=== PATIENT | female | born 1950 | race Caucasian/White ===

== ENCOUNTER 2017-09-12 07:13 | Day surgery (SDC) | payer BC ==
[~2017-09-12 07:13] MED LIST: Lactated Ringers 1,000 ML IV SCH; Lidocaine 1%/Sod Bicarbonate in NS 8.4% 1 ML Syringe IDERM PRN; Sodium Chloride 0.9% 10 ML Syringe FLUSH PRN
[2017-09-12] MEDS ORDERED: fentaNYL 100 MCG/2 ML SDV ONE (07:22)
[2017-09-12] MEDS ORDERED: Propofol 200 MG/20 ML SDV ONE (07:22)
[2017-09-12] MEDS ORDERED: Lidocaine 1% 4 ML ONE (07:23)
--- NOTE | 2017-09-12 07:56 | PCM.PREANE ---
Preanesthetic Assessment - Procedure Proposed Procedure: Diagnostic EGD - Anesthesia/Transfusion/Family Hx Anesthesia History: Prior Anesthesia Without Reaction Family History of Anesthesia Reaction: No Transfusion History: No Prior Transfusion(s) - Review of Systems General: No Symptoms Pulmonary: Other (NAHID does not use CPAP) Cardiovascular: Chest Pain (Last occasion about 2 months ago- took antacids and went away), Other (HTN) Gastrointestinal: Other (GERD, dysphagia ) Neurological: No Symptoms Other: Reports: Anxiety - Physical Assessment NPO Status Date: 09/11/17 NPO Status Time: 22:30 Pulse: 69 O2 Sat by Pulse Oximetry: 93 Respiratory Rate: 16 Blood Pressure: 119/67 Temperature: 36.9 C Height: 1.6 m Weight: 76 kg ASA Class: 2 Mental Status: Alert & Oriented x3 Airway Class: Mallampati = 1 Dentition: Reports: Broken Tooth/Teeth (top right front tooth fake) Thyro-Mental Finger Breadths: 3 Mouth Opening Finger Breadths: 3 ROM/Head Extension: Full Lungs: Clear to Auscultation, Normal Respiratory Effort Cardiovascular: Regular Rate, Regular Rhythm - Allergies Allergies/Adverse Reactions: Allergies Allergy/AdvReac Type Severity Reaction Status Date / Time No Known Allergies Allergy Verified 01/23/15 06:50 - Blood Blood Available: No Product(s) Available: None - Anesthesia Plan Pre-Op Medication Ordered: None - Acknowledgements Anesthesia Type Planned: MAC Pt an Appropriate Candidate for the Planned Anesthesia: Yes Alternatives and Risks of Anesthesia Discussed w Pt/Guardian: Yes Pt/Guardian Understands and Agrees with Anesthesia Plan: Yes PreAnesthesia Questionnaire - CURRENT (IN HOUSE) MEDS Current Meds: Current Medications Lactated Ringer's (Ringers, Lactated) 1,000 mls @ 125 mls/hr IV ASDIRECTED TRENT Stop: 09/12/17 23:00 Lidocaine/Sodium Bicarbonate (Buffered Lidocaine 1% In Ns 8.4%) 0.25 ml IDERM ONETIME PRN PRN Reason: Prior to IV Start Stop: 09/12/17 18:00 Sodium Chloride (Saline Flush) 10 ml FLUSH ASDIRECTED PRN PRN Reason: Keep Vein Open Stop: 09/12/17 18:00 Discontinued Medications Fentanyl (Sublimaze) Confirm Administered Dose 100 mcg .ROUTE .STK-MED ONE Stop: 09/12/17 07:23 Lidocaine HCl (Xylocaine-Mpf 1%) Confirm Administered Dose 4 mls @ as directed .ROUTE .STK-MED ONE Stop: 09/12/17 07:24 Propofol (Diprivan 20 Ml) Confirm Administered Dose 200 mg .ROUTE .STK-MED ONE Stop: 09/12/17 07:23
--- NOTE | 2017-09-12 08:20 | PCM.OPNOTE ---
- General Post-Op/Procedure Note Date of Surgery/Procedure: 09/12/17 Operative Procedure(s): Esophagogastroduodenoscopy with proximal esophageal GE junction as well as antral random biopsies. Gastric polypectomy 1 Findings: Multiple diminutive gastric polyps mostly in the body of the stomach and all less than 5 mm in size but otherwise normal examination with no strictures, stenoses or mass lesion seen within the esophagus. Pre Op Diagnosis: Sinusitis, dysphagia, and GERD symptoms Post-Op Diagnosis: Multiple gastric polyps Anesthesia Technique: MAC, Moderate Sedation Primary Surgeon: Carter Christianson Pathology: Gastric polyp with proximal esophageal biopsy GE junction biopsy and random antral biopsy EBL in mLs: 0 Complications: None Condition: Good Free Text/Narrative:: After adequate IV sedation and analgesia was obtained with monitoring the patient was placed on her left side. Through a bite-block a lubricated upper endoscope was inserted into the esophagus and advanced under direct vision into the body of the stomach where additional air was given. There was some saliva present in the stomach. The scope was then passed through the pylorus into the mid part of the duodenal loop. The second and first parts were endoscopically normal with no inflammatory changes or mass lesion seen. The antrum was unremarkable as well. In the retroflexed view there was no hiatal hernia. The fundic and cardiac regions were normal. There were several small glandular polyps within the body of the stomach and I performed a forceps polypectomy of one of these for histologic evaluation. I took random biopsies of the antrum and the GE junction which was grossly unremarkable. There were no strictures or rings or webs in this area. The scope was withdrawn to the body of the esophagus which was grossly normal. I took a random biopsy in the proximal third given her history of dysphagia. On extubation the vocal cords were briefly visualized and grossly normal. Air was removed as I finished the procedure which she tolerated well. [employer] L[employer] Monitor photographs were taken for the patient and for the medical record.
--- NOTE | 2017-09-12 08:28 | PCM48HPAN ---
Post Anesthesia Note - EVALUATION WITHIN 48HRS OF ANESTHETIC Vital Signs in Normal Range: Yes Patient Participated in Evaluation: Yes Respiratory Function Stable: Yes Airway Patent: Yes Cardiovascular Function Stable: Yes Hydration Status Stable: Yes Pain Control Satisfactory: Yes Nausea and Vomiting Control Satisfactory: Yes Mental Status Recovered: Yes
[2017-09-12 08:41] VITALS: BP 120/74
== END 2017-09-12 08:45 | disposition home or self-care (01) ==
LOC: JD.SDS 07:13
PROVIDERS: ATTEND Surgery
DX: R13.10 Dysphagia, unspecified (principal); K31.7 Polyp of stomach and duodenum; K21.9 Gastro-esophageal reflux disease without esophagitis; I10 Essential (primary) hypertension; J32.9 Chronic sinusitis, unspecified; G47.33 Obstructive sleep apnea (adult) (pediatric); F41.9 Anxiety disorder, unspecified; Z79.899 Other long term (current) drug therapy
CPT/HCPCS: 43239; J2001; J3010; J7120; 00731; J2704